=== PATIENT | female | born 1950 | race Caucasian/White ===

== ENCOUNTER 2021-06-15 06:34 | Outpatient (CLI) | payer MEDICARE, SELFPAY ==
--- NOTE | ~2021-06-15 | MR_ITS ---
EXAMINATION: MR brain/brain stem wo/w con EXAM DATE: 06/15/2021 08:08 INDICATION: Acute onset right leg numbness. TECHNIQUE: Magnetic resonance imaging (MRI) of the brain/brain stem obtained without contrast. Sagit gasper T1, axial diffusion, gradient echo (T2*), T1, T2, FLAIR sequences obtained. Patient was then inj ected with 16 cc intravenous Multihance contrast. Axial and coronal postcontrast T1 weighted sequence s obtained. There is no prior study for comparison. FINDINGS: There are no areas of restricted diffusion to suggest acute infarction. There is no acute hemorrhage seen on the T2*, a hemosiderin sensitive sequence. No intraparenchymal brain mass. The ve ntricles are normal in size. There are no extra-axial collections. Flow voids are seen in the cereb ral arteries on the T2-weighted sequences consistent with their expected patency. Patient has had bi lateral ocular lens surgery. Soft tissue is unremarkable. There are no areas of abnormal enhanceme nt on the postcontrast images. IMPRESSION: 1. Unremarkable brain MRI examination. Reviewed, dictated and finalized at location B.
[2021-06-15 07:55] LABS: Estimated Glomerular Filt Rate > 60
== END 2021-06-15 06:35 | disposition home or self-care (01) ==
PROVIDERS: PCP Internal Medicine; Visit Provider Internal Medicine
DX: R20.0 Anesthesia of skin (principal)
CPT/HCPCS: 70553; A9577

== ENCOUNTER 2023-11-17 13:25 | Outpatient (CLI) | payer MEDICARE, SELFPAY ==
--- NOTE | 2023-11-17 13:37 | ECHO_ITS ---
Patient Info Name: Cydney Bradley Age: 73 years : 1950 Gender: Female Ht: 63 in Wt: 167 lbs BSA: 1.86 m2 HR: 70 bpm BP: 144 / 76 mmHg Technical Quality: Good Exam Date: 11/17/2023 1:48 PM Exam Location: [facility] Patient Status: Outpatient Admit Date: 11/17/2023 Staff Ordering Physician: Mushtaq Mcadams MD Attending Provider: Mushtaq Mcadams MD Referring Physician: Pema LUCAS; Exam Type: CA echo doppler color flow Study Info Indications I50.9 - Heart failure, unspecified Complete two-dimensional, color flow and Doppler transthoracic echocardiogram is performed. Summary 1. Complete two-dimensional, color flow and Doppler transthoracic echocardiogram is performed. 2. Left ventricular chamber dimension is normal. 3. Left ventricular systolic function is normal, estimated at 60-65%. 4. The left ventricular diastolic function is grade I diastolic dysfunction. 5. E/e' 7 is not elevated. 6. Left atrial chamber dimension is mildly enlarged. 7. There is mild mitral valve regurgitation. 8. There is trace tricuspid valve regurgitation. 9. No pulmonary hypertension, estimated pulmonary arterial systolic pressure is 35 mmHg. 10. There is trace pulmonic regurgitation. Left Ventricle E/e' 7 is not elevated. Left ventricular chamber dimension is normal. Left ventricular systolic function is normal, estimated at 60-65%. The left ventricular diastolic function is grade I diastolic dysfunction. Right Ventricle Right ventricular systolic function is normal and with normal TAPSE 1.9 cm. Right ventricular chamber dimension is normal. Left Atria Left atrial chamber dimension is mildly enlarged. Right Atria Right atrial chamber dimension is normal. Aortic Valve The aortic valve is trileaflet. There is no aortic valve stenosis. There is no aortic valve regurgitation. Pulmonic Valve There is trace pulmonic regurgitation. Mitral Valve There is no mitral valve stenosis. There is mild mitral valve regurgitation. Tricuspid Valve There is trace tricuspid valve regurgitation. No pulmonary hypertension, estimated pulmonary arterial systolic pressure is 35 mmHg. Pericardium/Pleural There is no pericardial effusion. Inferior Vena Cava Normal inferior vena cava with >50% collapse upon inspiration consistent with normal right atrial pressure, 5 mmHg. Aorta The aortic root size at the sinus of Valsalva is normal. Left Ventricular Outflow Tract Name Value Normal LVOT 2D LVOT Diameter 2.0 cm LVOT Doppler LVOT Peak Gradient 3 mmHg LVOT Mean Gradient 2 mmHg LVOT VTI 22 cm LVOT VTI/AV VTI Ratio 0.6 LVOT Stroke Volume 72 ml LVOT CO 4.6 l/min LVOT CI 2.5 l/min/m2 Pulmonic Valve Name Value Normal PV Doppler PV Peak Gradient
== END 2023-11-17 13:26 | disposition home or self-care (01) ==
LOC: ANHCARD 13:26
PROVIDERS: PCP Family Medicine; Visit Provider Family Medicine
DX: R09.89 Other specified symptoms and signs involving the circulatory and respiratory systems (principal); I50.9 Heart failure, unspecified
CPT/HCPCS: 93306

== ENCOUNTER 2024-03-16 08:00 | Outpatient (RCR) | payer MEDICARE, SELFPAY ==
--- NOTE | 2024-02-15 17:22 | PTOPEVAL1 ---
Assessment and note entered by Arielle Bryant, PT Evaluation Information Assessment Status Evaluation Diagnosis pain right knee, unspecified injury of right knee. Therapy conditions weakness, abnormal posture Onset ~ 1 month Subjective Information Went fishing and was walking on large gravel multiple times and thinks injured it some how. Pain started at the time without traumatic incident and continued working through it. Was a few days then got into the doctor right away. Had had a prior steroid shot in the knee 2 months prior so couldn't get another at the time. Took Advil at home. States has always had problems with her knee but started hurting more. Reports when first injured couldn't put weight on it or lift it . changed how she went down steps to one at a time and has to walk stiff legged . Pt states depending on the day will have normal pattern for steps. States recently got on her bike but getting off on the right leg it gave way. Used a cane for a short time. x-rays were negative for fracture. Reported Pain Level Pain Score 0: Self Report Assessment PT Clinical Summary Pt presents with complaints of right knee pain. Demo's full active and passive ROM however demo's increased lateral patellar tracking, tight iliotibial band, weak RLE muscles, and poor ankle/ foot alignment. Pt reports also feeling of instability on RLE and has had one fall due to RLE giving way. Pt also reports N/T into RLE chronic in nature, possible RLE length discrepancy causing possible lumbar nerve issues also contributing to RLE weakness. Pt will greatly benefit from physical therapy to address deficits, and improve function with less pain to return to PLOF. Plan of Care Interventions Electrical Stimulation,Hot Pack/Cold Pack,Manual Therapy,Neuro Re-education,Patient/Caregiver Educati,Therapeutic Activities,Therapeutic Exercise,Self-Care/Home Management,Ultrasound, Other Other Interventions taping, NMES Treatment Frequency and 1-2x weekly x 12 visits Duration These treatments will address the objective and functional deficits as defined above. The patient will be advanced safely and appropriately in order for the patient to progress towards his/her prior level of function. Additional exercises will be introduced and as well as a comprehensive home exercise program upon discharge, if needed, ?to ensure noble
--- NOTE | 2024-02-15 17:23 | OPREHPOC ---
Outpatient Therapy Plan of Care This is a Multidisciplinary Plan of Care that may contain components documented by all disciplines (PT, OT, and ST.) PT Problem 1 PT Problem #1 Knowledge Deficit PT Goal 1 Goal Pt will be independent in HEP Pt will verbalize understanding of diagnosis and prognosis PT Problem 2 PT Problem #2 Pain PT Goal 1 Goal Pt will report greatest pain level at 3/10 or less to improve ADLs and activities Target Visit 6 PT Goal 2 Goal Pt will report resolution of pain to return to PLOF Target Visit 12 PT Problem 3 PT Problem #3 Impaired Flexibility PT Goal 1 Goal Pt will demo increased iliotibial band length to only mild tightness Target Visit 12 PT Problem 4 PT Problem #4 Impaired Strength PT Goal 1 Goal Pt will demo R quads and hamstring strength 4/5 or greater Target Visit 12
--- NOTE | 2024-03-16 08:48 | PTOPDC ---
Assessment and note entered by Arielle Bryant, PT Assessment Status Discharge Diagnosis pain right knee, unspecified injury of right knee. Onset ~ 1 month Subjective Information Pt reports feeling 90% at least . Is able to ride her bike, no longer has to walk stiff-legged , and stairs are doing good . Just takes them some slower. Reported Pain Level Pain Score 0: Self Report Additional Pain Score Comments Cont to have the knee cap burning sensation that is chronic Assessment PT Clinical Summary Pt has attended therapy consistently for her right knee pain and instability. As of today she has met all her therapy related goals, reports knee buckling has ceased, is able to do stairs without issue and is 90% improved at least . She rates herself at less than 2% disability on the LEFS scale as well. Pt is happy with her progres and understands maintenance instructions as well as when to return to therapy if needed in the future. Thus patient is being discharged for completing her therapy plan of care. Plan of Care PT Services Indicated No
== END 2024-03-21 11:09 | disposition home or self-care (01) ==
LOC: ANHHIPT 08:00
PROVIDERS: PCP Family Medicine; Visit Provider Family Medicine
DX: S89.91XD Unspecified injury of right lower leg, subsequent encounter (principal); M25.561 Pain in right knee
CPT/HCPCS: 97014; 97110; 97112; 97140; 97530; 97750; G0283